=== PATIENT | male | born 1995 | race Caucasian/White ===

== ENCOUNTER 2020-09-02 07:10 | Emergency (ER) | payer OTHER ==
[~2020-09-02] VITALS: Ht 175.3 cm; Wt 91.6 kg
[2020-09-02] MEDS ORDERED: BISACODYL 10 MG SUPP ONE (07:56)
[2020-09-02] MEDS ORDERED: BISACODYL 10 MG SUPP PR ONE (08:00)
[2020-09-02] MEDS ORDERED: SODIUM CHLORIDE 0.9% 1,000ML IVBOLUS ONE (08:00)
[2020-09-02 08:01] LABS: BASOPHILS % (AUTO) 1 % (0-1); EOSINOPHILS % (AUTO) 1 % (1-7); LYMPHOCYTES % (AUTO) 21 % (22-44); MEAN CORPUSCULAR HEMOGLOBIN 34.5 pg (27.5-34.5); MEAN CORPUSCULAR HGB CONC 34.3 g/dL (33.2-36.2); MEAN PLATELET VOLUME 9.4 fL (7.4-10.4); MONOCYTES % (AUTO) 10 % (2-9); NEUTROPHILS % (AUTO) 67 % (42-75); PLATELET COUNT 111 x10^3/uL (130-400); RED CELL DISTRIBUTION WIDTH 17.8 % (9.4-14.8)
[2020-09-02 08:02] LABS: MD NO
[2020-09-02 08:14] LABS: ALANINE AMINOTRANSFERASE 21 U/L (12-78); ALBUMIN 4.5 g/dL (3.4-5.0); ANION GAP 7 mmol/L (5-15); CHLORIDE 108 mmol/L (98-107); CREATININE 1.04 mg/dL (0.7-1.3)
[2020-09-02 08:16] LABS: ALKALINE PHOSPHATASE 63 U/L (45-117); BILIRUBIN,TOTAL 0.7 mg/dL (0.2-1.0); TOTAL PROTEIN 8.2 g/dL (6.4-8.2)
--- NOTE | 2020-09-02 08:18 | NUR ---
PT UP TO BATHROOM FOR A BM
--- NOTE | 2020-09-02 09:03 | NUR ---
BREAK RN: PT LAYING ON GURNEY WITH EYES CLOSED, NAD, NO NEEDS AT THIS TIME, CALL LIGHT WITHIN REACH.
[2020-09-02] MEDS ORDERED: TAMSULOSIN 0.4 MG CAP.ER.24H PO ONE (10:00)
[2020-09-02] MEDS ORDERED: TAMSULOSIN 0.4 MG CAP.ER.24H ONE (10:01)
--- NOTE | 2020-09-02 10:16 | NUR ---
PT GETTING ANXIOUS. STATES HE STILL HAS NOT URINATED.
--- NOTE | 2020-09-02 10:37 | NUR ---
PT STATES HIS ANXIETY IS GETTING WORSE. STILL HAS NOT URINATED
[2020-09-02] MEDS ORDERED: METHYLNALTREXONE 12 MG/0.6 ML SYR SQ ONE ×2 (11:06→11:30)
[2020-09-02 11:10] VITALS: BP 120/76
== END 2020-09-02 11:43 | disposition home or self-care (01) ==
LOC: ED 07:55
DX: R10.84 Generalized abdominal pain (principal); K59.00 Constipation, unspecified; R33.0 Drug induced retention of urine
CPT/HCPCS: 36415; 74176; 80053; 85025; 96360; 96372; 99284; J7030